=== PATIENT | female | born 1950 | race African-American/Black ===

== ENCOUNTER → 2016-06-10 | Outpatient (CLI) | payer MEDICARE | END | disposition home or self-care (01) | LOC: PCVCIMAG 10:12 | PROVIDERS: ATTEND Internal Medicine Cardiovascular Disease | DX: I10 Essential (primary) hypertension (principal); E11.9 Type 2 diabetes mellitus without complications; R06.09 Other forms of dyspnea; R60.9 Edema, unspecified | CPT/HCPCS: 93005; 93306; G0463 ==

== ENCOUNTER → 2017-06-15 | Outpatient (CLI) | payer MEDICARE | END | disposition home or self-care (01) | LOC: PCVCCLINIC 09:56 | DX: I10 Essential (primary) hypertension (principal); R06.00 Dyspnea, unspecified; R60.9 Edema, unspecified; R00.1 Bradycardia, unspecified | CPT/HCPCS: 93005; G0463 ==